=== PATIENT | female | born 2000 | race Caucasian/White ===

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

== ENCOUNTER 2022-11-08 13:30 | Emergency (ER) | payer MEDICAID ==
[~2022-11-08] VITALS: Ht 157.5 cm; Wt 60.3 kg
[2022-11-08] MEDS ORDERED: IBUPROFEN 800 MG TABLET PO ONE (14:15)
[2022-11-08 14:23] VITALS: BP_SYST 97; PULSE 63; RESP 16; TEMP 97.7; O2SAT 98
[2022-11-08] MEDS ORDERED: CEPH-548 PO (15:30)
[2022-11-08] MEDS ORDERED: IBUP-1969 PO (15:30)
[2022-11-08 15:58] VITALS: BP_SYST 97; PULSE 63; RESP 16; TEMP 97.7; O2SAT 98
== END 2022-11-08 15:57 | disposition home or self-care (01) ==
LOC: SED 13:30
DX: S90.211A Contusion of right great toe with damage to nail, initial encounter (principal); Z79.899 Other long term (current) drug therapy; W22.8XXA Striking against or struck by other objects, initial encounter; Y93.89 Activity, other specified; Y92.89 Other specified places as the place of occurrence of the external cause; Y99.8 Other external cause status
CPT/HCPCS: 99283